=== PATIENT | male | born 1965 | race Asian ===

== ENCOUNTER 2020-05-11 10:06 | Emergency (ER) | payer MEDICAID ==
[~2020-05-11] VITALS: Ht 172.7 cm; Wt 63.5 kg
[2020-05-11 10:06] VITALS: BP_SYST 145
--- NOTE | 2020-05-11 10:06 | NUR ---
BROUGHT IN BY [facility], PLACED IN BED #5 AND TRIAGED WITH ASSIST OF DIG[employer] MARKETING MANAGER. REPORT GIVEN TO KENDY
--- NOTE | 2020-05-11 10:07 | NUR ---
Patient BIB ambulance for generalized weakness. PT states he has been tired lately, emesis x1, and sore throat, denies pain. fisher diving at bedside
--- NOTE | 2020-05-11 10:20 | NUR ---
ER at bedside examining patient.
--- NOTE | 2020-05-11 10:30 | NUR ---
pt's family contact info Farhad Korin(son) : [phone] Trina Korin(daughter): [phone]
[2020-05-11 11:14] LABS: BASOPHILS % (AUTO) 0.1 % (0.0-2.0); HEMATOCRIT 37.7 % (36-54); HEMOGLOBIN 12.7 g/dL (14.0-18.0); LYMPHOCYTES # (AUTO) 0.5 K/uL (1.0-5.5); LYMPHOCYTES % (AUTO) 4.4 % (20.5-51.5); MEAN CORPUSCULAR HEMOGLOBIN 29 pg (27-31); MEAN CORPUSCULAR HGB CONC 34 % (32-36); MEAN CORPUSCULAR VOLUME 85 fL (79.0-98.0); MONOCYTES # (AUTO) 0.4 K/uL (0.0-1.0); MONOCYTES % (AUTO) 3.4 % (1.7-9.3); NEUTROPHILS # (AUTO) 10.5 K/uL (1.8-7.7); NEUTROPHILS % (AUTO) 92.1 % (40.0-70.0); PLATELET COUNT (AUTO) 150 K/uL (130-430); RED BLOOD CELL COUNT(AUTO) 4.46 MIL/uL (4.2-6.2); RED CELL DISTRIBUTION WIDTH 13.6 % (9.0-15.0); WHITE BLOOD COUNT (AUTO) 11.4 K/uL (4.8-10.8)
[2020-05-11 11:27] LABS: ANION GAP 3 (5-15); CALCIUM 7.8 mg/dL (8.4-11.0); CHLORIDE 90 mmol/L (98-107); CREATININE 0.96 mg/dL (0.55-1.30); GLUCOSE 133 mg/dL (70-99); POTASSIUM 3.8 mmol/L (3.5-5.1); SODIUM SERUM 123 mmol/L (136-145); UREA NITROGEN, BLOOD 12 mg/dL (8-21)
[2020-05-11 11:36] LABS: ALANINE AMINOTRANSFERASE 32 U/L (12-78); ALBUMIN 3.5 g/dL (3.4-4.8); ASPARTATE AMINOTRANSFERASE 21 U/L (10-37); TOTAL BILIRUBIN 0.7 mg/dL (0.0-1.0)
[2020-05-11 11:42] LABS: GFR AFRICAN AMERICAN 105 mL/min (>90)
--- NOTE | 2020-05-11 12:55 | NUR ---
Kristen Coworker/friend of patient called for update, I informed Kristen HIPPA laws and I cannot give update. Kristen available for Patient transportation for Discharge.
[2020-05-11 13:05] LABS: BILIRUBIN,URINE NEGATIVE (NEGATIVE); BLOOD, URINE NEGATIVE (NEGATIVE); CLARITY/URINE CLEAR (CLEAR); COLOR,URINE YELLOW (YELLOW); GLUCOSE,URINE NEGATIVE (NEGATIVE); KETONES,URINE 1+ (NEGATIVE); LEUKOCYTE ESTERASE ,URINE NEGATIVE (NEGATIVE); NITRITE, URINE NEGATIVE (NEGATIVE); PH,URINE 6.5 (5.0-8.0); PROTEIN URINE 1+ (NEGATIVE); UROBILINOGEN,URINE 0.2 (0.2-1.0)
--- NOTE | 2020-05-11 13:15 | NUR ---
PT AWAKE AND RESPONDING TO QUESTIONS IN [facility]
[2020-05-11 13:24] LABS: BACTERIA,URINE FEW /HPF (None Seen); RBC,URINE 0-3 /HPF (0-3); WBC,URINE 0-3 /HPF (0-3)
[2020-05-11] MEDS ORDERED: NACL 0.9% 1,000 ML IV ONE (13:30)
[2020-05-11 15:30] VITALS: BP_SYST 115
--- NOTE | 2020-05-11 15:30 | NUR ---
Patient given written and verbal discharge instructions and verbalizes understanding. ER MD discussed with patient the results and treatment provided. Patient in stable condition. ID arm band removed. IV catheter removed intact and dressing applied, no active bleeding. No Rx given. Patient educated on pain management and to follow up with PMD. Pain Scale 0/10 . Opportunity for questions provided and answered. Medication side effect fact sheet provided.
== END 2020-05-11 15:30 | disposition home or self-care (01) ==
LOC: SED 10:06
DX: E86.0 Dehydration (principal); E87.1 Hypo-osmolality and hyponatremia; E87.3 Alkalosis
CPT/HCPCS: 36415; 36600; 70450; 71045; 74176; 80053; 81000; 82435; 82803; 83935; 84302; 84484; 85025; 93005; 96360; 99285; J7030